=== PATIENT | male | born 1950 | race Caucasian/White ===

== ENCOUNTER 2016-07-08 20:02 | Emergency (ER) | payer OTHER ==
[~2016-07-08] VITALS: Ht 182.9 cm; Wt 104.3 kg
[~2016-07-08 20:02] MED LIST: CYAN100031 PO; FLUT16SP NS; HYDR-2762 PO; TAMS0.4C97 PO; VENTOLIN HFA18 GM IH
[2016-07-08 20:15] VITALS: BP 167/74
[2016-07-08] MEDS ORDERED: LIDOCAINE 1% / SOD BICARB 8.4% 20 ML VIAL. IJ ONE (20:15)
[2016-07-08] MEDS ORDERED: CIPR500T94 PO (20:51)
--- NOTE | 2016-07-08 20:51 | PHYS DOC ---
Past Medical History Past Medical History: Other Additional Past Medical Histor: HEP C Past Surgical History: Other Additional Past Surgical Histo: NECK SX, L ARM Alcohol Use: None Drug Use: None Adult General Chief Complaint Chief Complaint: LACERATION/AVULSION [facility] HPI Patient is a 65 year old male presents to the emergency department stating that he was out working with his boat and trying to get a ride and when he was trying to get out of the boat carrying a battery when he tripped and fell. He hasn't sure what he cut his right lower leg with. He has approximately 7 L laceration with bleeding controlled. He denies any numbness or tingling down to his lower extremity. He denies any further injury. He is unsure of when his last tetanus immunization occurred. Review of Systems Review of Systems Constitutional: Denies fever or chills [] Eyes: Denies change in visual acuity, redness, or eye pain [] HENT: Denies nasal congestion or sore throat [] Respiratory: Denies cough or shortness of breath [] Cardiovascular: No additional information not addressed in HPI [] GI: Denies abdominal pain, nausea, vomiting, bloody stools or diarrhea [] : Denies dysuria or hematuria [] Musculoskeletal: Denies back pain or joint pain [] Integument: Denies rash or skin lesions. Laceration right lower lateral leg Neurologic: Denies headache, focal weakness or sensory changes [] Endocrine: Denies polyuria or polydipsia [] Current Medications Current Medications Current Medications Medications (Trade) Dose Ordered Sig/[facility] Start Time Stop Time Status Last Admin Dose Admin Lidocaine/Sodium Bicarbonate (Buffered Lidocaine 1%) 20 ml 1X ONCE 07/08/16 20:15 07/08/16 20:16 DC Allergies Allergies Allergies Coded Allergies Type Severity Reaction Last Updated Verified No Known Drug Allergies 04/12/13 No Physical Exam Physical Exam Constitutional: Well developed, well nourished, no acute distress, non-toxic appearance. [] HENT: Normocephalic, atraumatic, bilateral external ears normal, oropharynx moist, no oral exudates, nose normal. [] Eyes: PERRLA, EOMI, conjunctiva normal, no discharge. [] Neck: Normal range of motion, no tenderness, supple, no stridor. [] Cardiovascular:Heart rate regular rhythm, no murmur [] Lungs & Thorax: Bilateral breath sounds clear to auscultation []] Skin: Warm, dry, no erythema, no rash. Patient with a somewhat centimeter laceration noted to the right lateral leg. Bleeding is currently controlled at this time. No foreign bodies or debris noted. The area appears to be very clean. Back: No tenderness Extremities: No tenderness, no cyanosis, no clubbing, ROM intact, no edema. Peripheral pulses 2+ cap refill brisk less than 2 seconds. Neurologic: Alert and oriented X 3, normal motor function, normal sensory function, no focal deficits noted. [] Psychologic: Affect normal, judgement normal, mood normal. [] Current Patient Data Vital Signs Vital Signs Date Time Temp Pulse Resp B/P (MAP) Pulse Ox O2 Delivery O2 Flow Rate FiO2 07/08/16 20:15 98.2 95 18 95 Room Air 98.2 EKG EKG [] Radiology/Procedures Radiology/Procedures [] Course & Med Decision Making Course & Med Decision Making Pertinent Labs and Imaging studies reviewed. (See chart for details) Patient was provided with discharge instructions. Recommended Tylenol or ibuprofen for pain and discomfort ice packs on 20 minutes off 20 minutes several times a day. Elevation as much as possible. Recommended keeping the area clean and dry. Clean the site twice a day with soap and water and applying antibiotic ointment to the area. Signs symptoms of infection: Redness, warmth, tenderness or any yellow/greenish drainage and comes from the site needs to be followed up immediately. Niraj out in the next 7-10 days. Patient will also be placed on Cipro and due to the fact that this happened at the diaz and unsure how much diaz water leonidas been splashed into the area. Patient agrees with discharge instructions treatment regimens and follow-up recommendations. [] Dragon Disclaimer Dragon Disclaimer This electronic medical record was generated, in whole or in part, using a voice recognition dictation system. Departure Departure Impression: Primary Impression: Laceration Disposition: 01 HOME, SELF-CARE Condition: STABLE Referrals: JUVENCIO GONZALEZ MD (PCP) Patient Instructions: Laceration Care, Adult, [id number], Stitches, Niraj or Skin Adhesive Strips, [id number] Additional Instructions: He had approximately 17 niraj placed in the right lower leg. Keep the area clean and dry. Clean the site with soap and water twice a day and apply antibiotic ointment to the area. Keep the area covered if you are out side. Tylenol or ibuprofen for pain and discomfort. Medication as prescribed. Watch for signs and symptoms of infection: Redness, warmth, tenderness or any yellow/greenish drainage of a come from the site. Follow-up to primary care physician in the next 7-10 days for staple removal. Return back to emergency department sign symptoms of become worse. Scripts Ciprofloxacin Hcl (CIPRO) 500 Mg Tablet 1 TAB PO BID, #20 TAB Prov: ALISTAIR SINGH APRN 07/08/16 Laceration/Wound Repair Laceration/Wound Repair : Wound Location: lower extremity Wound's Depth, Shape: superficial Wound Length (cm): 7 Wound Explored: clean Irrigated w/ Saline (ccs): 200 Betadine Prep?: Yes Anesthesia: 1% Lidocaine Volume Anesthetic (ccs): 12 Wound Debrided: minimal Progress Site was irrigated with approximately 200 mL of normal saline. 12 mL of 1% lidocaine buffered was injected into the area. 17 niraj was placed into the right lower lateral leg. Patient tolerated the procedure well. ALISTAIR SINGH APRN July 08, 2016 20:51
[2016-07-08] MEDS ORDERED: DIPHTH,PERTUSS(ACELL),TET TOX 0.5 ML DISP.SYRIN. VAX IM ONE (21:00)
== END 2016-07-08 21:20 | disposition home or self-care (01) ==
LOC: ER 20:02
DX: S81.811A Laceration without foreign body, right lower leg, initial encounter (principal); W01.0XXA Fall on same level from slipping, tripping and stumbling without subsequent striking against object, initial encounter; Y93.89 Activity, other specified; Y92.89 Other specified places as the place of occurrence of the external cause; Y99.8 Other external cause status
CPT/HCPCS: 12002; 90471; 90715; 99283-25

== ENCOUNTER → 2017-10-23 | Outpatient (CLI) | payer MEDICARE ==
[~2017-10-23] MED LIST changes: +CIPR500T94 PO
--- NOTE | 2017-10-23 12:11 | RAD ---
EXAMINATION: Magnetic resonance imaging (MRI) of the brain and orbits without contrast 10/23/2017 10:21 AM HISTORY: Visual deficits of the left eye, worsening over the last year. History of left eye pain occlusion. TECHNIQUE: Multiplanar multi-weighted MRI of the brain and orbits was performed without intravenous contrast using the brain and orbits protocol. Dedicated multiplanar thin slice imaging of the orbits was obtained. COMPARISON: None available. FINDINGS: Globes are spherical and contour. No evidence for lens dislocation. Intraocular muscles are normal in appearance. Optic nerves and optic nerve sheath complexes appear intact. Flow voids involving the superior ophthalmic veins appear maintained. Lacrimal glands appear normal. There is a small mucus retention cyst along the superior margin of the left maxillary sinus. Mild mucosal thickening involving the ethmoid air cells. No intraconal or extraconal mass is visualized. There is a 2.4 x 1.7 x 2.8 cm well-circumscribed lobulated mass which is T1 hypointense and T2 hyperintense in the left carotid space, posterior to the left cervical carotid artery. There is no associated osseous destruction. The deep lobe of the left parotid gland appears separate from this lesion. Findings are most suggestive of a schwannoma. Mild diffusion signal hyperintensity may suggest hypercellularity. The scalp and calvarium are normal. The superior sagittal sinus demonstrates normal venous flow. The corpus callosum is normal in shape and signal intensity. The posterior fossa is unremarkable. The pituitary and sella are normal. The brainstem and craniocervical junction are unremarkable. Few T2 hyperintense foci in the subcortical and periventricular white matter are within the range of age-related degenerative changes. Diffusion weighted images reveal no hyperintensities to suggest acute cerebral infarction. The susceptibility weighted sequences reveal no evidence of acute or chronic hemorrhage. The ventricles are normal in size and position without evidence of hydrocephalus. The visualized portions of the mastoids are unremarkable. Normal flow voids are demonstrated in the carotid arteries and basilar artery. IMPRESSION: 1. No significant abnormality identified involving the orbits. 2. There is a 2.4 x 1.7 x 2.8 cm mass within the left carotid space within the upper cervical region suspicious for a schwannoma. 3. No evidence for acute or subacute ischemia. Electronically signed by: Jelena Reynolds MD (10/23/2017 12:07 PM) [facility]
== END | disposition home or self-care (01) ==
LOC: MRI 10:14
PROVIDERS: ATTEND Internal Medicine
DX: H34.8122 Central retinal vein occlusion, left eye, stable (principal); J45.909 Unspecified asthma, uncomplicated; Z86.19 Personal history of other infectious and parasitic diseases
CPT/HCPCS: 70540; 70551

== ENCOUNTER → 2017-11-03 | Outpatient (CLI) | payer MEDICARE ==
--- NOTE | 2017-11-03 15:25 | RAD ---
MRI of the cervical spine without contrast 11/03/2017 CLINICAL HISTORY: Chronic neck pain with numbness and tingling involving both hands. TECHNIQUE: Unenhanced T1-weighted, T2-weighted and inversion recovery sagittal and gradient echo and T2-weighted axial images of the cervical spine were obtained. FINDINGS: Comparison is made to the patient's MRI of the brain dated 10/23/2017. Additional comparison is made to the patient's radiographs of the cervical spine dated 07/14/2013. Minimal lateral curvature of the cervical spine is seen convex to the left. There is straightening of the normal cervical lordosis. The patient is post anterior discectomy and fusion using an anterior plate, bone screws and bone graft material extending from C3 to C6. Degenerative signal changes are seen involving the remaining discs of the cervical spine. Degenerative signal changes are seen within the marrow surrounding these discs. Slight atrophy of the cervical spinal cord is seen, particularly inferiorly. Paracentral areas of increased signal intensity are seen involving the cervical spinal cord at the C5 and C6 levels consistent with areas of myelomalacia. These measure 2 to 5 mm in size. No additional area of abnormal signal intensity is seen involving the cervical spinal cord. A 2.8 cm oval-shaped mass is seen within the left superior neck which corresponds to the abnormality seen on the patient's MRI of the brain. This is consistent most likely with a schwannoma. It is unchanged. At the C2-3 disc space there is a mild generalized disc bulge. Superimposed on this disc bulge is a focal central disc protrusion. This measures 3 mm in AP diameter. Degenerative changes are seen involving the uncovertebral and facet joints, right greater than left. These findings efface the anterior and posterior CSF resulting in mild central spinal canal stenosis without evidence of cord impingement. Mild right neural foraminal stenosis is seen. The left neural foramen is patent. At the C3-4, C4-5 and C5-6 levels degenerative changes are seen involving the uncovertebral and facet joints. These findings do not result in significant central spinal canal stenosis. Mild right neural foraminal stenosis is seen at C3-4. At the C6-7 disc space there is a moderate generalized disc bulge. Degenerative changes are seen involving the uncovertebral and facet joints bilaterally. These findings efface anterior posterior CSF resulting in moderate central spinal canal stenosis with mild cord impingement. Mild bilateral neural foraminal stenosis is seen. At the C7-T1 disc space there is a minimal generalized disc bulge. Degenerative changes are seen involving the facet joints bilaterally. These findings do not result in significant central spinal canal or neural foraminal stenosis. IMPRESSION: 1. Post anterior fusion extending from C3 to C6. 2. Degenerative changes are seen throughout the cervical spine. These findings result in mild central spinal canal stenosis at C2-3 and moderate central spinal canal stenosis with mild cord impingement at C6-7. Mild right neural foraminal stenosis is seen at C2-3 and C3-4. Mild bilateral neural foraminal stenosis is seen at C6-7. 3. Atrophy and areas of myelomalacia are seen involving inferior aspect of the cervical spinal cord. Electronically signed by: Chris Nino MD (11/03/2017 3:22 PM) [facility]
== END | disposition home or self-care (01) ==
LOC: MRI 13:13
PROVIDERS: ATTEND Internal Medicine
DX: D36.11 Benign neoplasm of peripheral nerves and autonomic nervous system of face, head, and neck (principal); M48.02 Spinal stenosis, cervical region; G58.8 Other specified mononeuropathies; M43.22 Fusion of spine, cervical region; M50.20 Other cervical disc displacement, unspecified cervical region; I10 Essential (primary) hypertension; J45.909 Unspecified asthma, uncomplicated; Z86.19 Personal history of other infectious and parasitic diseases
CPT/HCPCS: 72141

== ENCOUNTER → 2017-11-04 | Outpatient (CLI) | payer MEDICARE ==
[~2017-11-04] MED LIST changes: +CONTRAST GIVEN. MC PRN; +IOHEXOL 300 MG/ML 100ML VIAL. IV ONE
--- NOTE | 2017-11-04 18:20 | RAD ---
Examination: CT ANGIOGRAPHY NECK History: L PERICAROTID SCHWANNOMA INJ 75ML OMNI 300 NO PREV Comparison/Correlation: None Findings: Axial images were acquired following 75 cc Omnipaque 300 for purposes of CTA of the neck. 3-D volume rendered imaging of the arterial vasculature of the neck and lower head were obtained. Sagittal and coronal MIP reformatted images were provided. Postoperative cervical spine fusion is noted from C4 to C6 with associated intervertebral body spacer material and anterior plate with screws. Interbody fusion device at C3-4 noted with intervertebral body disc spacer material. Dental amalgam is evident. Evaluation at these levels may be mildly limited as result. Carotid and vertebral artery origins are normal with no stenoses. There is no definite atheromatous involvement identified to involve the visualized arterial vasculature especially for the patient's age. Basilar artery and moapa of Robert are unremarkable. Right posterior communicating artery is not identified on the right and this is developmental in appearance. There is no evidence of mass lesion about the carotid arterial vasculature. Soft tissues of the neck are normal. Left maxillary sinus is retention cyst is present. Vallecula and piriform sinuses are unremarkable. True and false cords are unremarkable. Thyroid gland is normal. Visualized trachea is unremarkable. Subtle emphysematous involvement of the upper lung edgar noted. Impression: No mass lesion identified associated with the carotid vasculature. Vertebral and carotid arteries are widely patent with no stenosis. No definite atheromatous involvement identified especially for the patient's age. Electronically signed by: Roman East MD (11/04/2017 6:17 PM) [facility]
== END | disposition home or self-care (01) ==
LOC: CT 15:48
PROVIDERS: ATTEND Neurological Surgery
DX: D33.3 Benign neoplasm of cranial nerves (principal); Z98.890 Other specified postprocedural states
CPT/HCPCS: 70498

== ENCOUNTER → 2018-10-04 | Outpatient (CLI) | payer MEDICARE ==
[~2018-10-04] MED LIST changes: -CONTRAST GIVEN. MC PRN; -HYDR-2762 PO; +HYDR-2765 PO; -IOHEXOL 300 MG/ML 100ML VIAL. IV ONE
--- NOTE | 2018-10-04 14:32 | KCIC ---
Indications: Chronic right Achilles pain for one month. Patient felt a pop 2 days ago. Swelling. Three-view right ankle study: There is diffuse soft tissue thickening of the Achilles tendon. Calcification of the Achilles tendon is seen consistent with calcific tendinitis. Achilles tendon tear is possible. Prominent posterior spur of the calcaneus is seen at the attachment of the Achilles tendon. No plantar spur of the calcaneus is seen. No acute fracture or dislocation or lytic process is seen. The mortise ankle joint is intact. Three-view right foot study: No acute fracture or dislocation or lytic process is seen. There is mild primary degenerative osteoarthritis of the first metatarsal phalangeal joint. IMPRESSION: Diffuse soft tissue thickening of the Achilles tendon. Achilles tendon tear is possible. This may be further evaluated with MRI of the right ankle without contrast. No acute osseous abnormality. Electronically signed by: Juan Lema MD (10/04/2018 2:30 PM) [id number]
== END | disposition home or self-care (01) ==
LOC: KCIC 13:02
PROVIDERS: ATTEND Internal Medicine
DX: M19.071 Primary osteoarthritis, right ankle and foot (principal); M65.871 Other synovitis and tenosynovitis, right ankle and foot; G89.29 Other chronic pain
CPT/HCPCS: 73610; 73630

== ENCOUNTER → 2018-10-18 | Outpatient (CLI) | payer MEDICARE ==
--- NOTE | 2018-10-18 13:19 | KCIC ---
EXAM: MRI RIGHT ANKLE/HINDFOOT DATE: 10/18/2018 9:30 AM CLINICAL INDICATION: Right ankle swelling, evaluate for Achilles tear. Posterior ankle pain. COMPARISON: None TECHNIQUE: Multiplanar, multisequence MR imaging of the right ankle was performed without IV contrast. FINDINGS: Tendons: The medial flexor tendons including the posterior tibialis, flexor digitorum longus and flexor hallucis longus tendons are normal in signal and morphology. Mild tenosynovitis is seen at the knot of Osman within the flexor hallucis longus and flexor digitorum longus. There is increased signal and thickening of the peroneus brevis and peroneus longus consistent with moderate tendinosis. No discrete tear is identified, particularly on the T2 based images. The extensor tendons are intact, normal in signal and morphology. There is a full-thickness tear of the Achilles tendon approximately 4-5 cm from the calcaneal attachment. There is approximately 3 cm gap between the principal tendon components. Interspersed fluid and fat is seen. Associated Kager fat pad edema is seen with Achilles paratenonitis and mild retrocalcaneal bursal distention. Thickening and increased signal of the underlying Achilles tendon suggests underlying tendinosis. Plantar fascia is intact. Focal nodular thickening of the central band of the plantar fascia measuring up to 7 mm in thickness may represent a neurofibroma. No significant associated edema. Ligaments: Medial deltoid stabilizers are intact. Lateral collateral stabilizing ligaments including the anterior talofibular ligament are intact. Anterior and posterior tibiofibular ligaments are intact. Ligaments of the Sinus Tarsi are intact. Spaces/Places: Sinus Tarsi within normal limits, without mass lesion or edema pattern. Tarsal tunnel within normal limits, without mass lesion. Articular Cartilage/joint line: Articular cartilage at the tibiotalar joint preserved, without osteochondral lesion of the talar dome. Posterior and middle subtalar joint spaces are preserved. Bone/Bone Marrow: No evidence for fracture or osteonecrosis. IMPRESSION: 1. Full-thickness tear of the ACL approximately 4 cm from the attachment with a 3 cm gap between the principal tendon fragments. 2. FDL and FHL tenosynovitis centered at the knot of Osman. 3. The peroneus brevis and longus tendinosis at and just beyond the lateral malleolus without discrete tear. Electronically signed by: Robert Laureano MD (10/18/2018 1:15 PM) [facility]
== END | disposition home or self-care (01) ==
LOC: KCIC MRI 09:16
PROVIDERS: ATTEND Internal Medicine
DX: S83.511A Sprain of anterior cruciate ligament of right knee, initial encounter (principal); X58.XXXA Exposure to other specified factors, initial encounter; Y93.89 Activity, other specified; Y92.89 Other specified places as the place of occurrence of the external cause; Y99.8 Other external cause status; M65.9 Synovitis and tenosynovitis, unspecified
CPT/HCPCS: 73721

== ENCOUNTER 2019-04-15 11:09 | Day surgery (SDC) | payer MEDICARE ==
[~2019-04-15 11:09] MED LIST changes: +DEXAMETHASONE SOD PHOS 4 MG/ML VIAL ONE; +LIDOCAINE 2% PF 5 ML VIAL. ONE; +PROPOFOL 20 ML IV ONE
[2019-04-15] MEDS ORDERED: ONDANSETRON PF 4 MG/2 ML VIAL. ONE (11:10)
[2019-04-15] MEDS ORDERED: LISI-334 PO (12:00)
[2019-04-15] MEDS ORDERED: IV RINGERS,LACTATED 1000ML 1,000 ML IV ONE (12:00)
[2019-04-15] MEDS ORDERED: GABA300C18 PO (12:00)
[2019-04-15] MEDS ORDERED: DULO30CA2 PO (12:01)
[2019-04-15] MEDS ORDERED: SIMV10TA15 PO (12:02)
[2019-04-15] MEDS ORDERED: fentaNYL PF VIAL 100 MCG/2 ML VIAL ONE (12:11)
[2019-04-15] MEDS ORDERED: BUPIVACAINE-EPI 0.5%-1:200000 MPF 30 ML VIAL. ONE (12:21)
[2019-04-15] MEDS ORDERED: SURGICEL HEMOSTAT 2X14 EACH. ONE (12:32)
[2019-04-15] MEDS ORDERED: SURGICEL HEMOSTAT 4X8 EACH. ONE (12:32)
[2019-04-15] MEDS ORDERED: SEVOFLURANE 31 TO 60 MINUTES. IH ONE (12:39)
[2019-04-15] MEDS ORDERED: SODI473S25 MC (13:04)
--- NOTE | 2019-04-15 13:05 | DISCH ---
DISCHARGE INSTRUCTIONS Condition on Discharge Condition on Discharge: Stable Activity After Discharge Activity Instructions for Disc: Activity as tolerated, Avoid exertion Driving Instructions after Dis: Do not drive today Diet after Discharge Diet after Discharge: Regular Wound Incision Care Wound/Incision Care: Ice to area for comfort Other wound/incision instructi: [email or web address] Thursday Follow-Up Follow up with: Klever Thursday RIMA PYLE MD Apr 15, 2019 13:05
[2019-04-15] MEDS ORDERED: HYDR-3164 PO (13:14)
[2019-04-15 13:25] VITALS: BP 142/74
[2019-04-15] MEDS ORDERED: HYDROcodone/APAP 5/325MG 1 TAB TABLET PO ONE (13:30)
--- NOTE | 2019-04-15 13:32 | PDOC ---
BRIEF OPERATIVE NOTE Date: Apr 15, 2019 Pre-Op Diagnosis abscess upper back Post-Op Diagnosis same Procedure Performed incision and drainage Surgeon Klever Anesthesia Type: General (LMA) Blood Loss 10cc IV Fluid 350cc Specimens Obtained cultures Findings sebaceous abscess Complications none Operative Note Wk # [id number] RIMA PYLE MD Apr 15, 2019 13:32
[2019-04-15] MEDS ORDERED: HYDR-2761 PO (13:44)
--- NOTE | 2019-04-15 13:46 | OP ---
DATE OF SURGERY: 04/15/2019 PREOPERATIVE DIAGNOSIS: Abscess, upper back. POSTOPERATIVE DIAGNOSIS: Abscess, upper back. PROCEDURE: Incision and drainage. SURGEON: Rima Pyle MD ANESTHESIA: General LMA. ESTIMATED BLOOD LOSS: 10 mL. INTRAVENOUS FLUIDS: 350 mL. DESCRIPTION OF PROCEDURE: The patient brought to the operating suite and given a general LMA and placed in left lateral decubitus position, the right upper back was prepped and draped in usual sterile fashion. A 0.5% Marcaine with epinephrine was infiltrated around the process and the process was then unroofed, evacuated, cultured, irrigated and checked for hemostasis. When present and a correct sponge count obtained, the wound was dressed with Surgicel Nu Gauze soaked in saline and 4 x 4s. Dressing applied. The patient was taken out of the lateral decubitus position, awakened from his anesthetic and taken to the recovery room in satisfactory condition. RIMA PYLE MD DR: RADHA/aziza JOB#: [id number] / [id number]
== END 2019-04-15 14:10 | disposition home or self-care (01) ==
LOC: SURG 11:09
PROVIDERS: ATTEND Surgery
DX: L02.212 Cutaneous abscess of back [any part, except buttock and flank] (principal); I10 Essential (primary) hypertension; E78.00 Pure hypercholesterolemia, unspecified; J45.909 Unspecified asthma, uncomplicated; E66.9 Obesity, unspecified; Z68.33 Body mass index [BMI] 33.0-33.9, adult; Z87.891 Personal history of nicotine dependence; Z87.39 Personal history of other diseases of the musculoskeletal system and connective tissue
CPT/HCPCS: 10060; 87071; 87075; A7015; J0696; J1100; J2001; J2405; J2704; J3010; J3490; A4461

== ENCOUNTER → 2019-09-22 | Outpatient (CLI) | payer MEDICARE ==
[~2019-09-22] MED LIST changes: +ALBU2.5V8 IH; -DEXAMETHASONE SOD PHOS 4 MG/ML VIAL ONE; +DOCU-153 PO; +DULO30CA2 PO; +DULO60CA6 PO; +GABA300C18 PO; +HYDR-2761 PO; +HYDR-3164 PO; -LIDOCAINE 2% PF 5 ML VIAL. ONE; +LISI-334 PO; +LISI10TA2 PO; +METH750T2 PO; +MONT10TA49 PO; +OXYC1TAB15 PO; -PROPOFOL 20 ML IV ONE; +SIMV10TA15 PO; +SIMV20TA18 PO; +SODI473S25 MC
[2019-09-22 14:33] LABS: BASO # 0.1 x10^3/uL (0.0-0.2); BASO % 1 % (0-3); EOS # 0.2 x10^3/uL (0.0-0.7); EOS % 2 % (0-3); HEMATOCRIT 40.9 % (39.0-53.0); HEMOGLOBIN 14.1 g/dL (13.0-17.5); LYMPH # 2.2 x10^3/uL (1.0-4.8); LYMPH % 24 % (24-48); MEAN CORPUSCULAR HEMOGLOBIN 31 pg (25-35); MEAN CORPUSCULAR HGB CONC 34 g/dL (31-37); MEAN CORPUSCULAR VOLUME 91 fL (79-100); MONO # 0.8 x10^3/uL (0.0-1.1); MONO % 9 % (0-9); NEUT # 5.7 x10^3/uL (1.8-7.7); NEUT % 64 % (31-73); PLATELET COUNT 248 x10^3/uL (140-400); RED BLOOD COUNT 4.48 x10^6/uL (4.30-5.70); RED CELL DISTRIBUTION WIDTH 12.6 % (11.5-14.5)
[2019-09-22 14:44] LABS: PROTHROMBIN TIME PATIENT 13.6 SEC (11.7-14.0)
[2019-09-22 14:48] LABS: ALBUMIN 4.2 g/dL (3.4-5.0); ALBUMIN/GLOBULIN RATIO 1.3 (1.0-1.7); CALCIUM 9.3 mg/dL (8.5-10.1); CREATININE 0.8 mg/dL (0.7-1.3); GFR 96.1; POTASSIUM 4.1 mmol/L (3.5-5.1); TOTAL BILIRUBIN 0.8 mg/dL (0.2-1.0); TOTAL PROTEIN 7.5 g/dL (6.4-8.2)
== END | disposition home or self-care (01) ==
LOC: SURGPAT 13:55
PROVIDERS: ATTEND Neurological Surgery
DX: Z01.812 Encounter for preprocedural laboratory examination (principal); Z20.828 Contact with and (suspected) exposure to other viral communicable diseases; M48.02 Spinal stenosis, cervical region; Z98.1 Arthrodesis status; Z79.899 Other long term (current) drug therapy
CPT/HCPCS: 80053; 85025; 85610; 85730; 87641; U0003

== ENCOUNTER 2019-09-29 07:09 | Inpatient (IN) | payer MEDICARE ==
[~2019-09-29] VITALS: Ht 180.3 cm; Wt 104.3 kg
[2019-09-29] VITALS (8 sets, daily range): BP systolic 116–148; BP diastolic 63–81
[~2019-09-29 07:09] MED LIST changes: -ALBU2.5V8 IH; +BACITRACIN 50,000 UNIT in IV NORMAL SALINE 1000ML BAG 1,000 ML IRR ONE; +BUPIVACAINE-EPI 0.5%-1:200000 MPF 30 ML VIAL. ONE; +DEXAMETHASONE SOD PHOS 20 MG/5 ML VIAL. ONE; -DOCU-153 PO; +GELATIN SPONGE SIZE 100. ONE; +IV RINGERS,LACTATED 1000ML 1,000 ML IV SCH; +KETOROLAC 60 MG/2 ML VIAL. ONE; +LIDOCAINE 1% PF 2 ML VIAL. ID PRN; +LIDOCAINE 2% PF 5 ML VIAL. ONE; -METH750T2 PO; +ONDANSETRON PF 4 MG/2 ML VIAL. IV PRN; +ONDANSETRON PF 4 MG/2 ML VIAL. ONE; -OXYC1TAB15 PO; +PROCHLORPERAZINE 10 MG/2 ML VIAL. IV PRN; +PROPOFOL 10 MG/ML (20ML) VIAL. IV ONE; +ROCURONIUM 50 MG/5 ML VIAL. ONE; +SUCCINYLCHOLINE 200 MG/10 ML VIAL. ONE; +THROMBIN TOPICAL 20,000 UNIT SPRAY.SYRN KIT TP ONE; +fentaNYL PF VIAL 100 MCG/2 ML VIAL IV PRN
[2019-09-29] MEDS ORDERED: PROPOFOL 100 ML IV ONE (07:48)
[2019-09-29] MEDS ORDERED: fentaNYL PF VIAL 100 MCG/2 ML VIAL ONE ×2 (07:51→14:37)
[2019-09-29] MEDS ORDERED: REMIFENTANIL 2 MG VIAL. IV ONE ×2 (07:51→11:12)
[2019-09-29] MEDS ORDERED: PHENYLEPHRINE 10 MG/ML VIAL. ONE (07:51)
--- NOTE | 2019-09-29 10:09 | PREOP HP ---
DATE OF SERVICE: 09/29/2019 HISTORY OF PRESENT ILLNESS: The patient is a pleasant 69-year-old, who has difficulty with left-sided neck pain along with numbness in his upper extremities and hands. The left side is much more involved than the right. He also notices difficulty with his balance, feelings of weakness and has numbness in both of his legs. His problem started in 10/2018 after he fell off a ladder. He rates his pain as a 6/10. Walking increases his pain. He says neck is stiff and has limited range of motion. He underwent physical therapy, which ended in June, he says it did not help him significantly. PAST MEDICAL HISTORY: GERD, hepatitis C, hypertension, asthma, COPD, arthritis, head or neck injury, tumors or growths, sleep apnea, cold sores, fever blisters. PAST SURGICAL HISTORY: Appendectomy, 1977; ACDF, C4-C5, C5-C6; ACDF, C3-C4, 04/2013; Achilles tendon repair, 2018; prostate surgery, 2017. FAMILY HISTORY: Cancer, heart disease, hypertension. 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 Former smoker. He denies all alcohol consumption. ALLERGIES: No known drug allergies. CURRENT MEDICATIONS: Gabapentin, simvastatin, montelukast, lisinopril, duloxetine. REVIEW OF SYSTEMS: A 12-point review of systems was obtained and is noncontributory except that mentioned above. PHYSICAL EXAMINATION: NEUROSURGERY EXAMINATION: GENERAL APPEARANCE: Alert, pleasant, in no acute distress. HEAD: Normocephalic and atraumatic. NECK AND THYROID: [id number] tenderness with palpation of posterior cervical region, especially on the left side; well-healed incision. SKIN: Warm and dry. MUSCULOSKELETAL: Lumbar paraspinal muscle bulk is normal. Cervical range of motion is restricted. Normal range of motion of the upper extremities bilaterally. EXTREMITIES: No clubbing, cyanosis or edema. NEUROLOGIC: Alert and oriented x 3. Normal recent and remote memory. Strength 5/5 in bilateral upper and lower extremities except for 4/5 strength in left triceps. Sensory is intact to light touch in the upper and lower extremities except for a diffuse decrease in sensation for both forearms and hands, left worse than right. Reflexes are present and symmetric in the upper and lower extremities bilaterally. Unsteady gait. IMAGING: I reviewed both the cervical MRI scan as well as the CT scan. He has had extensive anterior operation, this resulted in fusion from C3 through C6. At C2-C3, there is moderate stenosis. At C6-C7, there is moderately severe cervical canal stenosis along with bilateral neural foraminal narrowing. The remainder of the spinal canal is small, but not severely stenotic. ASSESSMENT/ PLAN: At this point, I feel he should undergo cervical surgery to decompress his spinal cord. My recommendation at this point would be for posterior cervical laminectomy extending from C2-C3 to C6-C7 with instrumentation. I discussed the other option, which would be an anterior operation at C6-C7 alone. I explained that after a few years, he would have a problem with progressive stenosis developing at C2-C3. At this point, he is strongly in favor of a posterior operation. I outlined the surgery and the risks. I explained the expected postoperative course. He understands. He elected to go ahead. We will make the arrangements. YUDITH SOLORZANO MD DR: GRETEL/aziza JOB#: [id number] / [id number]
[2019-09-29] MEDS ORDERED: PROPOFOL 50 ML IV ONE (11:05)
[2019-09-29] MEDS ORDERED: REMIFENTANIL 1 MG VIAL. IV ONE ×2 (11:44→13:19)
[2019-09-29] MEDS ORDERED: HYDROmorphone 2 MG/ML VIAL ONE ×2 (12:15→15:56)
[2019-09-29] MEDS ORDERED: ceFAZolin SODIUM IV Push 1 GM VIAL. IVP ONE (13:07)
[2019-09-29] MEDS ORDERED: SEVOFLURANE 61 TO 120 MINUTES. IH ONE (13:49)
[2019-09-29] MEDS ORDERED: NEOSTIGMINE METHYLSULFATE 5 MG/5 ML SYRINGE. ONE (13:49)
[2019-09-29] MEDS: fentaNYL PF VIAL 100 MCG/2 ML VIAL IV PRN ×2 (14:40→14:47)
--- NOTE | 2019-09-29 15:06 | OP ---
DATE OF SURGERY: 09/29/2019 PREOPERATIVE DIAGNOSES: Cervical spinal stenosis/cervical myelopathy, cervical stenosis C2-C3 and C6-C7. POSTOPERATIVE DIAGNOSES: Cervical spinal stenosis/cervical myelopathy, cervical stenosis C2-C3 and C6-C7. OPERATION PERFORMED: 1. Cervical laminectomy C5, C6, C7 with facet fusion C6-C7 and lateral mass instrumentation C5, C6, C7 on the left and C4, C6, C7 on the right. 2. Cervical laminectomy C3, C2, decompression of dura. The operation was done with multimodality monitoring including EMG monitoring, SSEP monitoring, fluoroscopy, microscopic dissection, motor evoked potentials. SURGEON: Rajendra Solorzano M.D, TAX COMPLIANCE MANAGER: YOUSUF Rosa assisted with the surgery. She assisted with the exposure, the decompression, instrumentation and fusion closure. OPERATIVE INDICATIONS: The patient in the past undergone two anterior operations and has fused from C3 through C6. He has then developed gradually adjacent segment problems with difficulties at C6-C7 and to a lesser extent at C2-C3. He became myelopathic with difficulty with gait and problems with his upper extremities and I recommended a cervical laminectomy and instrumented fusion to deal with the stenosis at C6-C7 and then with regard to the more moderate stenosis at C2-C3. I recommended a cervical laminectomy at this time to forestall problems in the future. He understood the rationale, the risks, technique and the expected postoperative course and wished to go ahead. DESCRIPTION OF PROCEDURE: Following general endotracheal anesthesia, the patient was positioned prone in Fry pins. We avoided any pressure points. The posterior cervical region was clipped, prepped and draped in standard fashion. DEANN hose and AV impulse boots were applied for DVT prophylaxis. A microscope was draped. Fluoroscopy was draped and brought in the field. Monitoring was established. Ancef 2 g was given about 30 minutes prior to surgery. Using fluoroscopic guidance, incision was made from C2 through C7. Dissection was carried down through skin and subcutaneous tissues and the paraspinal muscles reflected laterally. Self-retaining retractors were placed using then the microscope was brought in. I drilled line pilot openings in C5, C6, and C7 bilaterally and tapped and placed screws on the right side. This was uneventful and on the left side, I was unable to get good purchase at C5 on the right so I moved superiorly to C4. I excoriated the facets and placed bone into the facets and placed the veronika and nuts, which were then torqued. I then drilled troughs bilaterally C5, C6 and C7 and performed a laminectomy by lifting away the bone at C5, C6 and C7. I did perform a quite wide decompression and virtually foraminotomy at C6 and C7 bilaterally. I went to C2, C3 and drilled the inferior aspect of the C2 spinous process and then removed this lamina of C3 and I drilled and I trimmed with Kerrison up to about slightly more than 50% of the lamina of the two. I had an excellent decompression. I did take an x-ray during my decompression and I felt that I needed more bone work superiorly at C2, which was then accomplished. I irrigated with antibiotic solution. I then closed the wound in layers with absorbable suture after obtaining perfect hemostasis. The incision was closed with 4-0 subcuticular stitch. The skin was closed with skin kendall. I felt the surgery went very well. RAJENDRA SOLORZANO MD DR: GRETEL/aziza JOB#: [id number] / [id number] JOHNNY
[2019-09-29] MEDS ORDERED: MORPHINE SULFATE 2 MG/ML VIAL. ONE (15:30)
[2019-09-29] MEDS: MORPHINE SULFATE 2 MG/ML VIAL. IV PRN ×2 (15:30→15:46)
[2019-09-29] MEDS: HYDROmorphone 2 MG/ML VIAL IV PRN ×4 (16:02→16:43)
[2019-09-29] MEDS ORDERED: oxyCODONE/APAP 5/325 1 TAB TABLET PO PRN ×2 (17:15→17:45)
[2019-09-29] MEDS ORDERED: ALBU2.5V8 IH (17:21)
[2019-09-29] MEDS ORDERED: POTASSIUM CL 20MEQ D5-0.45NACL 1,000 ML IV SCH (17:30)
[2019-09-29] MEDS ORDERED: ALBUTEROL SULFATE 2.5 MG/3 ML NEBU. NEB PRN (17:30)
--- NOTE | 2019-09-29 17:30 | NUR ---
received from recovery.He is snoring. at bedside. IV infusing in right hand. dressing to posterior neck has small amount serosanguineous drainage. will arouse to name and touch. neuropsychiatric aide is equal pulses good and denies numbness. completes history. bed alarm on
[2019-09-29] MEDS ORDERED: MAG HYDROX/ALUMINUM HYD/SIMETH 30 ML ORAL.SUSP PO PRN (17:45)
[2019-09-29] MEDS ORDERED: METHOCARBAMOL 750 MG TABLET PO PRN (17:45)
[2019-09-29] MEDS ORDERED: diphenhydrAMINE HCL 25 MG CAPSULE PO PRN (17:45)
[2019-09-29] MEDS ORDERED: CALCIUM CARBONATE 500 MG TAB.CHEW PO PRN (17:45)
[2019-09-29] MEDS ORDERED: NALOXONE 0.4 MG/ML VIAL. IV PRN (17:45)
[2019-09-29] MEDS ORDERED: MAGNESIUM HYDROXIDE 2,400 MG/30 ML ORAL.SUSP. PO PRN (17:45)
[2019-09-29] MEDS ORDERED: 0.9 % SODIUM CHLORIDE 10 ML DISP.SYRIN. IV PRN (17:45)
[2019-09-29] MEDS ORDERED: DEXTROSE 50% 25 GM / 50ML DISP.SYRIN. IV PRN (17:45)
[2019-09-29] MEDS ORDERED: ACETAMINOPHEN 325 MG TABLET. PO PRN (17:45)
[2019-09-29] MEDS: DOCUSATE SODIUM 100 MG CAPSULE. PO SCH (20:57)
[2019-09-29] MEDS: MONTELUKAST SODIUM 10 MG TABLET. PO SCH (20:57)
[2019-09-29] MEDS: SIMVASTATIN 20 MG TABLET PO SCH (20:57)
[2019-09-29] MEDS: GABAPENTIN 300 MG CAPSULE. PO SCH (20:57)
[2019-09-29] MEDS: LISINOPRIL 10 MG TABLET PO SCH ×2 (21:37→21:41)
[2019-09-29] MEDS: oxyCODONE/APAP 5/325 1 TAB TABLET PO PRN (21:38)
[2019-09-29] MEDS: ceFAZolin SODIUM IV Push 1 GM VIAL. IVP SCH (21:39)
[2019-09-30] MEDS: POTASSIUM CL 20MEQ-0.45% NACL 1,000 ML IV SCH ×3 (00:15→20:18)
--- NOTE | 2019-09-30 02:08 | NUR ---
Patient denies need to void, informed him of need to void or straight cath if unable to void. Patien requesting to attempt to use urinal first. Urinal provided and privacy provided.
[2019-09-30 03:00] VITALS: BP 138/84
[2019-09-30] MEDS: oxyCODONE/APAP 5/325 1 TAB TABLET PO PRN ×3 (03:45→21:20)
--- NOTE | 2019-09-30 03:52 | NUR ---
Patient voided 100 cc clear ludmila urine. Patient denied need to void or discomfort. Patient requested "cup of coffee" Informed Patient of need to urinate. Patient given pain medication for c/o neck pain and informed him that when pain decreases will ambulate him to restroom to try to urinate. Patient verbalized understanding.
--- NOTE | 2019-09-30 05:31 | NUR ---
Patient continues to deny urge to void. Patient states "I had Prostate surgery and ever since then I don't Pee much, just small amounts at a time." Patient assisted to restroom and voided 150 cc clear yellow urine. Patient denies tenderness on palpation over bladder and denies any discomfort. Will monitor.
[2019-09-30] MEDS: ceFAZolin SODIUM IV Push 1 GM VIAL. IVP SCH ×2 (06:18→14:59)
[2019-09-30 07:15] VITALS: BP 142/62
--- NOTE | 2019-09-30 08:00 | NUR ---
more alert this am. states he is painful; incisional pain. reinforced dressing is clean dry and intact. 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 arrives. voided without problem.
[2019-09-30] MEDS: GABAPENTIN 300 MG CAPSULE. PO SCH ×2 (08:05→20:37)
[2019-09-30] MEDS: DULoxetine HCL 30 MG CAPSULE.DR PO SCH (08:06)
[2019-09-30] MEDS: METHOCARBAMOL 750 MG TABLET PO PRN ×2 (08:06→18:00)
[2019-09-30] MEDS: DOCUSATE SODIUM 100 MG CAPSULE. PO SCH ×2 (08:06→20:37)
--- NOTE | 2019-09-30 10:30 | NUR ---
up in recliner--resting. states his pain is 6-7. he feels a little "wobbly " with ambulation. has his own walker. original surgical dressing removed. kendall intact. no new drainage or bruising noted. at bedside. ice applied to below shoulder blades
[2019-09-30 11:15] VITALS: BP 129/54
[2019-09-30] MEDS ORDERED: OXYC1TAB15 PO (12:19)
[2019-09-30] MEDS ORDERED: METH750T2 PO (12:19)
[2019-09-30] MEDS ORDERED: DOCU-153 PO (12:19)
--- NOTE | 2019-09-30 12:20 | DISCH ---
DISCHARGE INSTRUCTIONS Condition on Discharge Condition on Discharge: Stable Activity After Discharge Activity Instructions for Disc: Walk in house Other activity instructions: use walker until released by physician; follow walking program Bathing Instructions: Shower-keep dressing dry, No Tub Bath until see Lifting Instructions after Dis: No heavy lifting, No pulling or pushing, Do not lift >10 pounds Exercise Instruction after Dis: Progress as tolerated Driving Instructions after Dis: No driving for 2 weeks Weight Bearing Status after Di: No restrictions Diet after Discharge Diet after Discharge: Regular Wound Incision Care Wound/Incision Care: Ice to area for comfort, Keep wound/cast CDI, Change dressing Other wound/incision instructi: change dressing after shower, cleanse with chlor prep the apply dressing Wound Care Equipment: Dressings Contacting the DRNany after DC Call your doctor for: Concerns you may have Follow-Up Follow Up With: call [phone] for a 2 week post op appt with Dr. Torres's nurse Treatment/Equipment after DC Adaptive Equipment Issued: None, YUDITH Ramirez MD Sep 30, 2019 12:20
[2019-09-30] MEDS: fentaNYL PF VIAL 100 MCG/2 ML VIAL IVP PRN ×3 (14:55→20:32)
--- NOTE | 2019-09-30 15:00 | NUR ---
complaining of pain; medicated with fentanyl iv. demonstrated dressing change and application of dressing to Naya (). reviewed written discharge instructions with and reviewed restrictions to activities of daily living such as bathing and weight restrictions. dressings given to . instructed to call for a post op [address] Torres/Luiza ROSS GIVEN TO TO STEEL WELDER
[2019-09-30 15:15] VITALS: BP 153/69
[2019-09-30 19:20] VITALS: BP 148/65
[2019-09-30] MEDS: LISINOPRIL 10 MG TABLET PO SCH ×2 (20:37)
[2019-09-30] MEDS: SIMVASTATIN 20 MG TABLET PO SCH (20:37)
[2019-09-30] MEDS: MONTELUKAST SODIUM 10 MG TABLET. PO SCH (20:37)
[2019-09-30 23:19] VITALS: BP 138/69
[2019-10-01 03:51] VITALS: BP 124/71
[2019-10-01] MEDS: oxyCODONE/APAP 5/325 1 TAB TABLET PO PRN ×3 (05:23→13:00)
[2019-10-01 07:00] VITALS: BP 130/73
[2019-10-01 08:44] VITALS: BP 130/73
[2019-10-01] MEDS: GABAPENTIN 300 MG CAPSULE. PO SCH (09:00)
[2019-10-01] MEDS: DOCUSATE SODIUM 100 MG CAPSULE. PO SCH (09:00)
[2019-10-01] MEDS: DULoxetine HCL 30 MG CAPSULE.DR PO SCH (09:24)
[2019-10-01 11:00] VITALS: BP 110/60
--- NOTE | 2019-10-01 13:31 | NUR ---
Administered percocet 10mg PO to patient prior to leaving, internet not available at time of giving. Manually charted.
--- NOTE | 2019-10-04 13:08 | PATHOLOGY ---
[facility] Accession Number: [id number] . 01 Material submitted: . vertebral column - CERVICAL DECOMPRESSION . 01 Clinical history: . CERVICAL STENOSIS, ARTHRODESIS STATUS . 02 Diagnosis: Bone and soft tissue "C2 through C7", cervical decompression: - Trabecular bone with trilineage hematopoiesis. - Fragments of hyaline cartilage with reactive/degenerative change. - Dense fibrous connective tissue with reactive/regenerative change. (MLK/db; 10/03/2019) LBQ 10/03/2019 1710 Local . 02 Electronically signed: . Jordan Funk MD, Pathologist NPI- [id number] . 01 Gross description: . The specimen is received in formalin, labeled "Subhash Jarsulic, cervical decompression". Received is a large amount of pink-caldera braga fibrous, gritty material admixed with small fragments of bone measuring 8.8 x 7.5 x 3.0 cm in aggregate dimensions. The specimen is submitted representatively in cassette A1, following light decalcification. (CAA; 09/30/2019) QAC/QAC 09/30/2019 1323 Local . 02 Pathologist provided ICD-10: M50.30 . 02 CPT . 105611, [id number] Specimen Comment: A courtesy copy of this report has been sent to [phone], [phone] Specimen Comment: [id number] Specimen Comment: Report sent to / DR GONZALEZ Performed at: 01 [facility] [address], [place] [id number] MD Hugo Seals MD Phone: [phone] Performed at: 02 [facility] [address] [place], [place] [id number] MD Subhash Lewis MD Phone: [phone]
--- NOTE | 2019-10-25 10:23 | DS ---
DATE OF DISCHARGE: 10/01/2019 DISCHARGE DIAGNOSES: Cervical spinal stenosis and cervical myelopathy, C2-C3 and C6-C7. OPERATION PERFORMED: Cervical laminectomy C5, C6, C7 with facet fusion, C6-C7 and lateral mass instrumentation C5, C6, C7 on the left and C4, C6, C7 on the right. Also, a cervical laminectomy C3, C2 with decompression of the dura. HISTORY OF PRESENT ILLNESS: The patient in the past has undergone 2 anterior operations and has fused from C3 through C6. He then developed adjacent segment problems with difficulties at C6-C7 and to a lesser extent at C2-C3. He became myelopathic and had difficulty with gait and problems with his upper extremities. I recommended cervical laminectomy and instrumented fusion to deal with the stenosis at C6-C7 and then to deal with the moderate stenosis at C2-C3. He understood the rationale, the risks and the technique and the expected postoperative course and wished to go ahead. HOSPITAL COURSE: He was admitted to the floor postoperatively where he did well. He was able to be up ambulating in the room and in the halls. Physical therapy was initiated and instruction was given to him regarding his activities. His pain is controlled well. He is in good condition to discharge home. DISCHARGE MEDICATIONS: He will resume his medications per the MRAD. DISCHARGE INSTRUCTIONS: He was instructed regarding incision care, activity restrictions and expectations for the next several weeks. He will follow up in our office in 2 weeks. He understands to call with any questions or concerns. YUDITH SOLORZANO MD DR: RUPALI/aziza JOB#: [id number] / [id number] [facility] CENTERAdryan
== END 2019-10-01 13:05 | disposition home or self-care (01) | DRG 472 ==
LOC: OPSVCIP 07:09 → 4 NORTH 16:47
PROVIDERS: ADMIT Neurological Surgery; ATTEND Neurological Surgery
PROC: 0RG10J1 Fusion of Cervical Vertebral Joint with Synthetic Substitute, Posterior Approach, Posterior Column, Open Approach (ICD-10-PCS; 2019-09-29)
PROC: 4A11X4G Monitoring of Peripheral Nervous Electrical Activity, Intraoperative, External Approach (ICD-10-PCS; 2019-09-29)
PROC: 00NW0ZZ Release Cervical Spinal Cord, Open Approach (ICD-10-PCS; principal; 2019-09-29 08:30)
DX: M48.02 Spinal stenosis, cervical region (principal); G95.9 Disease of spinal cord, unspecified; G99.2 Myelopathy in diseases classified elsewhere; I10 Essential (primary) hypertension; J44.9 Chronic obstructive pulmonary disease, unspecified; Z82.49 Family history of ischemic heart disease and other diseases of the circulatory system; Z87.891 Personal history of nicotine dependence; Z98.1 Arthrodesis status; K21.9 Gastro-esophageal reflux disease without esophagitis; M19.90 Unspecified osteoarthritis, unspecified site; Z90.49 Acquired absence of other specified parts of digestive tract
CPT/HCPCS: 36415; 76000; 86850; 86900; 86901; 88304; 88311; A7015; C1713; J0330; J0690; J1100; J1170; J1885; J2270; J2370; J2405; J2704; J2710; J3010; J3480; J3490; J7030; J7120; 97110-GP; 97116-GP; 97530-GP; G0378; Q0163

== ENCOUNTER → 2019-12-26 | Outpatient (CLI) | payer MEDICARE ==
[~2019-12-26] MED LIST changes: +ALBU2.5V8 IH; -BACITRACIN 50,000 UNIT in IV NORMAL SALINE 1000ML BAG 1,000 ML IRR ONE; -BUPIVACAINE-EPI 0.5%-1:200000 MPF 30 ML VIAL. ONE; -DEXAMETHASONE SOD PHOS 20 MG/5 ML VIAL. ONE; +DOCU-153 PO; -GELATIN SPONGE SIZE 100. ONE; -IV RINGERS,LACTATED 1000ML 1,000 ML IV SCH; -KETOROLAC 60 MG/2 ML VIAL. ONE; -LIDOCAINE 1% PF 2 ML VIAL. ID PRN; -LIDOCAINE 2% PF 5 ML VIAL. ONE; +METH750T2 PO; -ONDANSETRON PF 4 MG/2 ML VIAL. IV PRN; -ONDANSETRON PF 4 MG/2 ML VIAL. ONE; +OXYC1TAB15 PO; -PROCHLORPERAZINE 10 MG/2 ML VIAL. IV PRN; -PROPOFOL 10 MG/ML (20ML) VIAL. IV ONE; -ROCURONIUM 50 MG/5 ML VIAL. ONE; -SUCCINYLCHOLINE 200 MG/10 ML VIAL. ONE; -THROMBIN TOPICAL 20,000 UNIT SPRAY.SYRN KIT TP ONE; -fentaNYL PF VIAL 100 MCG/2 ML VIAL IV PRN
--- NOTE | 2019-12-26 17:18 | KCIC ---
C-spine 3 views INDICATION: Postop cervical fusion COMPARISON: C-spine MRI of 11/03/2017. FINDINGS: AP, lateral and swimmer's lateral views of the cervical spine were obtained. They again show anterior cervical fusion spanning C3-C6. There has been interval placement of posterior fusion hardware that on the right has pedicle screws through C4, C6 and C7, and on the left has screws through C5, C6 and C7. There is no evidence of hardware loosening or migration. No evidence of hardware failure. The cervical spine alignment appears anatomic. No fracture or aggressive osseous lesions are seen. The soft tissues show no abnormal swelling or gas. Incidental cardiomegaly IMPRESSION: Status post anterior and posterior spinal fusion hardware in anatomic alignment with no acute or aggressive osseous lesions seen. Electronically signed by: Josh Tucker MD (12/26/2019 5:15 PM) [id number]
== END ==
LOC: KCIC 13:33
PROVIDERS: ATTEND Neurological Surgery
DX: M43.22 Fusion of spine, cervical region (principal); I51.7 Cardiomegaly; Z98.1 Arthrodesis status
CPT/HCPCS: 72040

== ENCOUNTER → 2020-12-11 | Outpatient (CLI) | payer MEDICARE ==
[~2020-12-11] MED LIST changes: +DOCU-148 PO; -DOCU-153 PO; -DULO60CA6 PO; +DULO60CA7 PO; -LISI-334 PO; +LISI10TA16 PO; -LISI10TA2 PO; +LISI20TA18 PO; +METH-562 PO; -METH750T2 PO
--- NOTE | 2020-12-12 08:15 | KCIC ---
EXAM: MRI RIGHT KNEE DATE: 12/11/2020 1:23 PM CLINICAL INDICATION: Reason: RIGHT KNEE PAIN / Spl. Instructions: / History: Chronic right knee pain and worsening medial tenderness. COMPARISON: None. TECHNIQUE: Multiplanar, multisequence MRI of the RIGHT knee was performed without contrast. FINDINGS: Small knee joint effusion. No Vela's cyst. The ACL and PCL are intact. The MCL, fibular collateral ligament, biceps femoris and IT band are inta ct. Popliteus is intact, normal in signal and morphology. Extensor mechanism is intact. Neutral brian lar tracking. Medial meniscus: Diffuse degeneration/maceration body-posterior horn medial meniscus. Lateral meniscus: Mild morphologic abnormalities without discrete tear, possibly degeneration. Chondral effacement medial compartment with subchondral edema. There is also chondral effacement and portions of the lateral tibial plateau predominantly medially with subchondral edema. Intermittent ch ondral thinning patella. Prominent tricompartmental osteophytes. No fracture or osteonecrosis. IMPRESSION: Severe and tricompartmental right knee joint osteoarthritis with chondral effacement medial compartme nt and subchondral edema/cystic change. No acute fracture or osteonecrosis. Electronically signed by: Robert Laureano MD (12/12/2020 8:12 AM) SALINAS
== END ==
LOC: KCIC MRI 13:09
PROVIDERS: ATTEND Internal Medicine
DX: M17.11 Unilateral primary osteoarthritis, right knee (principal); M25.461 Effusion, right knee; R60.0 Localized edema
CPT/HCPCS: 73721